=== PATIENT | female | born 2000 | race Caucasian/White ===

== ENCOUNTER 2021-07-14 21:56 | Emergency (ER) | payer OTHER ==
[2021-07-14] MEDS ORDERED: Lidocaine 1% w/Epinephrine 1:100K 20 ML VIAL ONE (22:26)
[2021-07-14] MEDS ORDERED: Bacitracin 1 PK ONE (22:52)
[2021-07-14] MEDS ORDERED: Boostrix 0.5 ML (Tdap) VIAL ONE (23:13)
== END 2021-07-14 23:15 | disposition home or self-care (01) ==
LOC: CSHERS 21:56
DX: S01.112A Laceration without foreign body of left eyelid and periocular area, initial encounter (principal); W19.XXXA Unspecified fall, initial encounter
CPT/HCPCS: 12013; 90715